=== PATIENT | female | born 1935 | race Caucasian/White ===

== ENCOUNTER 2018-10-03 15:55 | Emergency (ER) | payer MEDICARE, OTHER ==
[~2018-10-03] VITALS: Ht 162.6 cm; Wt 65.9 kg
[2018-10-03] MEDS ORDERED: normal saline 1000ml 1,000 ML IV ONE (16:30)
[2018-10-03 16:56] LABS: EOSINOPHILS # (AUTO) 0.4 X10'3 (0-0.9)
[2018-10-03 16:58] LABS: BASOPHILS % (AUTO) 0.3 % (0-1); EOSINOPHILS % (AUTO) 4.6 % (0-6); HEMATOCRIT 41.8 % (35.0-45.0); HEMOGLOBIN 13.7 g/dl (12.0-16.0); LYMPHOCYTES # (AUTO) 1.7 X10'3 (1.1-4.8); LYMPHOCYTES % (AUTO) 20.9 % (21-51); MEAN CORPUSCULAR HEMOGLOBIN 31.3 PG (27.0-31.0); MEAN CORPUSCULAR HGB CONC 32.8 g/dL (33.0-36.5); MEAN CORPUSCULAR VOLUME 95.4 FL (78-98); MEAN PLATELET VOLUME 7.8 FL (7.4-10.4); MONOCYTES # (AUTO) 0.5 X10'3 (0-0.9); MONOCYTES % (AUTO) 6.2 % (2-12); NEUTROPHILS # (AUTO) 5.7 X10'3 (1.8-7.7); PLATELET COUNT 266 X10'3 (140-440); RED BLOOD COUNT 4.38 X10'6 (4.20-5.60); RED CELL DISTRIBUTION WIDTH 14.7 % (11.5-14.5); WHITE BLOOD COUNT 8.3 X10'3 (4.5-11.0)
[2018-10-03 17:03] LABS: ALANINE AMINOTRANSFERASE 20 U/L (12-78); ALBUMIN 3.4 G/DL (3.4-5.0); ALBUMIN/GLOBULIN RATIO 0.9 (1.1-1.5); ALKALINE PHOSPHATASE 85 IU/L (46-116); ANION GAP 7 (8-16); ASPARTATE AMINO TRANSFERASE 11 U/L (10-37); BILIRUBIN,TOTAL 0.2 MG/DL (0.1-1.0); BLOOD UREA NITROGEN 24 MG/DL (7-18); BUN/CREATININE RATIO 25.3 (6.6-38.0); CALCIUM 9.5 MG/DL (8.5-10.1); CHLORIDE 106 MMOL/L (99-107); CREATININE 0.95 MG/DL (0.40-0.90); GLUCOSE 104 MG/DL (70-104); MAGNESIUM 2.2 MG/DL (1.5-2.4); POTASSIUM 4.7 MMOL/L (3.5-5.1); SODIUM 139 MMOL/L (135-145); TOTAL CARBON DIOXIDE 26.5 MMOL/L (24-32); TOTAL PROTEIN 7.2 G/DL (6.4-8.2); eGFR 56 ML/MIN
[2018-10-03] MEDS ORDERED: ibuprofen tablet 400 MG TABLET PO ONE (17:30)
[2018-10-03 17:52] VITALS: BP 121/55
== END 2018-10-03 17:53 | disposition home or self-care (01) ==
LOC: ER 15:56
DX: S52.691A Other fracture of lower end of right ulna, initial encounter for closed fracture (principal); E86.0 Dehydration; R55 Syncope and collapse; J44.9 Chronic obstructive pulmonary disease, unspecified; F10.99 Alcohol use, unspecified with unspecified alcohol-induced disorder; Z90.49 Acquired absence of other specified parts of digestive tract; Z88.6 Allergy status to analgesic agent; Z88.8 Allergy status to other drugs, medicaments and biological substances; W18.39XA Other fall on same level, initial encounter; Y93.89 Activity, other specified; Y92.89 Other specified places as the place of occurrence of the external cause; Y99.8 Other external cause status; Y90.9 Presence of alcohol in blood, level not specified
CPT/HCPCS: 29125; 36415; 71045; 73090; 80053; 83735; 84484; 85025; 85610; 93005; 99284

== ENCOUNTER 2018-10-11 14:44 | Outpatient (CLI) | payer MEDICARE, OTHER | END 2018-10-11 16:50 | disposition home or self-care (01) | LOC: ORTHO 14:44 | PROVIDERS: ATTEND Orthopaedic Surgery | DX: S52.691D Other fracture of lower end of right ulna, subsequent encounter for closed fracture with routine healing (principal); J44.9 Chronic obstructive pulmonary disease, unspecified; Z87.891 Personal history of nicotine dependence; W19.XXXD Unspecified fall, subsequent encounter | CPT/HCPCS: 29075; 73110; A4590; G0463 ==

== ENCOUNTER 2018-11-08 14:45 | Outpatient (CLI) | payer MEDICARE, OTHER | END 2018-11-08 16:10 | disposition home or self-care (01) | LOC: ORTHO 14:45 | PROVIDERS: ATTEND Orthopaedic Surgery | DX: S52.501D Unspecified fracture of the lower end of right radius, subsequent encounter for closed fracture with routine healing (principal); J44.9 Chronic obstructive pulmonary disease, unspecified; Z87.891 Personal history of nicotine dependence; Z72.89 Other problems related to lifestyle; X58.XXXD Exposure to other specified factors, subsequent encounter | CPT/HCPCS: 73110; G0463 ==

== ENCOUNTER 2019-01-10 14:58 | Outpatient (CLI) | payer MEDICARE, OTHER | END 2019-01-10 16:00 | disposition home or self-care (01) | LOC: ORTHO 14:58 | PROVIDERS: ATTEND Orthopaedic Surgery | DX: S59.001D Unspecified physeal fracture of lower end of ulna, right arm, subsequent encounter for fracture with routine healing (principal); X58.XXXD Exposure to other specified factors, subsequent encounter | CPT/HCPCS: 73110; G0463 ==

== ENCOUNTER 2020-05-24 03:30 | Inpatient (IN) | payer MEDICARE, OTHER ==
[2020-05-24] VITALS (8 sets, daily range): BP systolic 108–168; BP diastolic 49–69
[~2020-05-24] VITALS: Ht 162.6 cm; Wt 68.2 kg
[2020-05-24 04:04] LABS: BASOPHILS # (AUTO) 0.1 X10'3 (0-0.2); BASOPHILS % (AUTO) 0.7 % (0-1); EOSINOPHILS # (AUTO) 0.4 X10'3 (0-0.9); EOSINOPHILS % (AUTO) 5.8 % (0-6); HEMATOCRIT 41.2 % (35.0-45.0); HEMOGLOBIN 13.5 g/dl (12.0-16.0); LYMPHOCYTES # (AUTO) 1.8 X10'3 (1.1-4.8); MEAN CORPUSCULAR HEMOGLOBIN 31.6 PG (27.0-31.0); MEAN CORPUSCULAR HGB CONC 32.7 g/dL (33.0-36.5); MEAN CORPUSCULAR VOLUME 96.4 FL (78-98); MEAN PLATELET VOLUME 7.9 FL (7.4-10.4); MONOCYTES # (AUTO) 0.6 X10'3 (0-0.9); NEUTROPHILS # (AUTO) 4.7 X10'3 (1.8-7.7); NEUTROPHILS % (AUTO) 61.5 % (42-75); PLATELET COUNT 261 X10'3 (140-440); RED BLOOD COUNT 4.27 X10'6 (4.20-5.60); RED CELL DISTRIBUTION WIDTH 13.8 % (11.5-14.5); WHITE BLOOD COUNT 7.7 X10'3 (4.5-11.0)
--- NOTE | 2020-05-24 05:24 | NUR ---
pt awaiting hospitalist.
[2020-05-24 05:30] LABS: ALANINE AMINOTRANSFERASE 23 U/L (12-78); ALBUMIN 3.5 G/DL (3.4-5.0); ALBUMIN/GLOBULIN RATIO 0.9 (1.1-1.5); ALKALINE PHOSPHATASE 94 IU/L (46-116); ANION GAP 12 (8-16); ASPARTATE AMINO TRANSFERASE 16 U/L (10-37); BILIRUBIN,TOTAL 0.3 MG/DL (0.1-1.0); BLOOD UREA NITROGEN 18 MG/DL (7-18); BUN/CREATININE RATIO 18.6 (6.6-38.0); CALCIUM 9.6 MG/DL (8.5-10.1); CHLORIDE 104 MMOL/L (99-107); CREATININE 0.97 MG/DL (0.40-0.90); GLUCOSE 106 MG/DL (70-104); POTASSIUM 4.5 MMOL/L (3.5-5.1); SODIUM 141 MMOL/L (135-145); TOTAL CARBON DIOXIDE 25.3 MMOL/L (24-32); TOTAL PROTEIN 7.2 G/DL (6.4-8.2); eGFR 55 ML/MIN
[2020-05-24] MEDS ORDERED: ALBU8.5H8 INH (05:37)
[2020-05-24] MEDS ORDERED: LOSA25TA96 PO (05:37)
[2020-05-24] MEDS ORDERED: FLUT1DIS INH (05:37)
[2020-05-24] MEDS ORDERED: ondansetron/PF 4mg/2ml inj IV PRN (05:40)
[2020-05-24] MEDS ORDERED: magnesium 2GM in 50ml NS 50 ML IV PRN (05:40)
[2020-05-24] MEDS ORDERED: potassium Cl 40MEQ/1/2NS 520ml 520 ML IV PRN ×2 (05:40)
[2020-05-24] MEDS ORDERED: magnesium 4gm in 100ml NS 100 ML IV PRN (05:40)
[2020-05-24] MEDS ORDERED: mag hydrox/Alum hydrox/simeth 30ml oral suspension PO PRN (05:40)
[2020-05-24] MEDS ORDERED: morphine 2 MG/ML inj. syringe IV PRN (05:40)
[2020-05-24] MEDS ORDERED: potassium Cl 20 mEq SR tablet PO PRN ×2 (05:40)
[2020-05-24] MEDS ORDERED: regadenoson 0.4mg/5ml syringe IV ONE (05:40)
[2020-05-24] MEDS ORDERED: acetaminophen 325mg tablet PO PRN ×2 (05:40)
[2020-05-24] MEDS ORDERED: docusate sod 100mg capsule PO PRN (05:40)
[2020-05-24] MEDS ORDERED: normal saline 1000ml 1,000 ML IV SCH (05:40)
[2020-05-24] MEDS ORDERED: aminophylline 250mg/10ml inj. IV PRN (05:40)
[2020-05-24] MEDS ORDERED: nitroGLYCERIN 0.4mg SUBLingual tab SL PRN (05:40)
[2020-05-24] MEDS ORDERED: metoprolol tartrate 1mg/ml inj IV PRN (05:40)
[2020-05-24] MEDS ORDERED: magnesium Cl slow-release 64mg tablet PO PRN (05:40)
[2020-05-24] MEDS ORDERED: HYDROcodone/acetaminophen 5mg/325mg tablet PO PRN (05:40)
--- NOTE | 2020-05-24 06:00 | NUR ---
admission orders written. dr. solitario at bedside for admission. pts remains at bedside. stable vs. no cp at this time.
[2020-05-24] MEDS ORDERED: albuterol 2.5 MG/3 ML nebule NEB PRN (06:15)
[2020-05-24] MEDS ORDERED: pantoprazole 40mg Tablet.DR PO SCH (07:30)
[2020-05-24] MEDS ORDERED: heparin, porcine 5000 units/ml vial SQ SCH (08:00)
[2020-05-24] MEDS ORDERED: K and/or MAG REPLACEMENT MC SCH (08:00)
[2020-05-24] MEDS ORDERED: amLODIPine 5mg tablet PO SCH (08:00)
[2020-05-24] MEDS ORDERED: LOSA50TA3 PO (10:24)
--- NOTE | 2020-05-24 12:15 | NUR ---
Patient brought from the ED to room 3015p. Received report from RHIANNA Barker. 2 RN skin assessment and MRSA swab completed. VS stable and entered into [facility]. engine monitor 5 placed onto patient.
--- NOTE | 2020-05-24 15:00 | NUR ---
Group page sent. Awaiting response. PAGER ID: [phone] MESSAGE: Who has Alireza Joaquin. 3014a? Came up at 12 from ED; admitted by Magu around 0600.. Stress test results negative. Patient wanting to leave tonight, if possible. Thanks. Lucero. [phone].
--- NOTE | 2020-05-24 16:24 | NUR ---
Awaiting md response. PAGER ID: [phone] MESSAGE: Re: Joaquin Lay. 3014a. Gabby scan and 12hr trops negative. Can I feed the patient? Also, wants to DC and talk to you. thanks. Lucero. [phone].
--- NOTE | 2020-05-24 17:25 | NUR ---
notified. PAGER ID: [phone] MESSAGE: Re: Joaquin Lay. [id number]. No longer in patient discharge screen. Need home medications finalized prior to DC. thanks. Lucero. [phone].
--- NOTE | 2020-05-24 18:08 | NUR ---
Patient stable for discharge per md orders. no perscriptions called in. Education and strict return precautions gone over in detail. IV discontinued and taken out with cannula intact. panel monitor discontinued. Patient placed into wheelchair and wheeled to lobby by cristal [place]. Patient helped into private vehicle driven by significant other of patient.
== END 2020-05-24 18:30 | disposition home or self-care (01) | DRG 313 ==
LOC: ER 03:31 → ED HOLD 05:36 → PCU 3S 13:33
PROVIDERS: ADMIT Internal Medicine; ATTEND Internal Medicine
PROC: 4A02XM4 Measurement of Cardiac Total Activity, External Approach (ICD-10-PCS; principal; 2020-05-24)
PROC: 3E073KZ Introduction of Other Diagnostic Substance into Coronary Artery, Percutaneous Approach (ICD-10-PCS; 2020-05-24)
DX: R07.89 Other chest pain (principal); I10 Essential (primary) hypertension; J43.9 Emphysema, unspecified; M25.50 Pain in unspecified joint; M19.011 Primary osteoarthritis, right shoulder; Z87.891 Personal history of nicotine dependence; Z90.49 Acquired absence of other specified parts of digestive tract; Z88.5 Allergy status to narcotic agent
CPT/HCPCS: 36415; 71045; 78452; 80053; 83880; 84484; 85025; 87081; 93005; 93017; 93306; 93308; 97116; 97161; 97530; 97535; 99285; A9500; G0378; J1644; J2785; J7030

== ENCOUNTER 2023-09-12 19:50 | Inpatient (IN) | payer MEDICARE, OTHER ==
[~2023-09-12] VITALS: Ht 162.6 cm; Wt 54.5 kg
[~2023-09-12 19:50] MED LIST: ADV50100 INH; ALBU8.5H17 INH; LOSA1TAB36 PO
[2023-09-12 20:18] LABS: EOSINOPHILS # (AUTO) 0.1 X10'3 (0-0.9); RED CELL DISTRIBUTION WIDTH 13.7 % (11.5-14.5); WHITE BLOOD COUNT 15.7 X10'3 (4.5-11.0)
[2023-09-12 20:20] LABS: BASOPHILS % (AUTO) 0.1 % (0-1); EOSINOPHILS % (AUTO) 0.5 % (0-6); HEMOGLOBIN 12.8 g/dl (12.0-16.0); LYMPHOCYTES # (AUTO) 0.7 X10'3 (1.1-4.8); LYMPHOCYTES % (AUTO) 4.7 % (21-51); MEAN CORPUSCULAR HEMOGLOBIN 32.1 PG (27.0-31.0); MEAN CORPUSCULAR HGB CONC 33.6 g/dL (33.0-36.5); MEAN CORPUSCULAR VOLUME 95.6 FL (78-98); MEAN PLATELET VOLUME 7.7 FL (7.4-10.4); MONOCYTES # (AUTO) 0.8 X10'3 (0-0.9); MONOCYTES % (AUTO) 5.4 % (2-12); NEUTROPHILS % (AUTO) 89.3 % (42-75); PLATELET COUNT 314 X10'3 (140-440); RED BLOOD COUNT 3.97 X10'6 (4.20-5.60)
[2023-09-12 20:31] LABS: ALANINE AMINOTRANSFERASE 18 U/L (12-78); ALBUMIN 3.2 G/DL (3.4-5.0); ALBUMIN/GLOBULIN RATIO 0.9 (1.1-1.5); ALKALINE PHOSPHATASE 101 IU/L (46-116); ANION GAP 7 (8-16); ASPARTATE AMINO TRANSFERASE 16 U/L (10-37); BILIRUBIN,TOTAL 0.5 MG/DL (0.1-1.0); BLOOD UREA NITROGEN 28 MG/DL (7-18); BUN/CREATININE RATIO 18.9 (10.0-20.0); CALCIUM 9.5 MG/DL (8.5-10.1); CHLORIDE 98 MMOL/L (99-107); CREATININE 1.48 MG/DL (0.40-0.90); GLUCOSE 133 MG/DL (70-104); POTASSIUM 4.1 MMOL/L (3.5-5.1); SODIUM 133 MMOL/L (135-145); TOTAL CARBON DIOXIDE 28.3 MMOL/L (24-32); TOTAL PROTEIN 6.8 G/DL (6.4-8.2); eCRCL 23 ML/MIN; eGFR 33 ML/MIN
[2023-09-12] MEDS: normal saline 1000ml 1,000 ML IV ONE (21:45)
[2023-09-12 23:15] LABS: BILIRUBIN,URINE NEGATIVE (Neg); CLARITY,URINE CLOUDY (Clear); COLOR,URINE YELLOW (Yellow); GLUCOSE, URINE NEGATIVE (Neg); KETONES,URINE TRACE mg/dl (Neg); LEUKOCYTE ESTERASE ,URINE SMALL (Neg); NITRITES, URINE NEGATIVE (Neg); OCCULT BLOOD,URINE LARGE (Neg); PROTEIN,URINE >=300 mg/dl (Neg); UROBILINOGEN,URINE 0.2 E.U/dL (0.2-1.0)
[2023-09-12 23:19] LABS: UA COLLECTION TYPE STRAIGHT CATH
[2023-09-12 23:33] LABS: WBC,URINE TNTC /HPF (0-4)
[2023-09-12 23:34] LABS: AMORPHOUS URATES 1+; BACTERIA,URINE 2+ /HPF (Neg); SQUAMOUS EPITHELIAL CELL,UR FEW /LPF (FEW); TRANSITIONAL EPI CELLS,URINE FEW /HPF
[2023-09-13] MEDS: CefTRIAXone/D5W-Rocephin 1gm 50 ML IV ONE
[2023-09-13] MEDS ORDERED: acetaminophen 325mg tablet PO PRN (01:05)
[2023-09-13] MEDS ORDERED: magnesium sulf-water 2g/50mL 50 ML IV PRN (01:05)
[2023-09-13] MEDS ORDERED: ondansetron/PF 4mg/2ml inj IV PRN (01:05)
[2023-09-13] MEDS ORDERED: magnesium sulf-water 4G/100mL 100 ML IV PRN (01:05)
[2023-09-13] MEDS ORDERED: mag hydrox/Alum hydrox/simeth 30ml oral suspension PO PRN (01:05)
[2023-09-13] MEDS ORDERED: potassium Cl 20 mEq SR tablet PO PRN ×2 (01:05)
[2023-09-13] MEDS ORDERED: magnesium Cl slow-release 64mg tablet PO PRN (01:05)
[2023-09-13] MEDS ORDERED: potassium Cl 40MEQ/1/2NS 520ml 520 ML IV PRN (01:05)
[2023-09-13 02:13] LABS: HEMOGLOBIN A1C 5.9 % (4.5-6.2)
[2023-09-13] MEDS: K and/or MAG REPLACEMENT MC SCH (07:53)
[2023-09-13] MEDS: heparin, porcine 5000 units/ml vial SQ SCH (08:01)
[2023-09-13] MEDS: docusate sod 100mg capsule PO SCH (08:01)
[2023-09-13] MEDS: normal saline 1000ml 1,000 ML IV SCH (09:58)
[2023-09-13] MEDS ORDERED: QUET25TA36 PO (14:19)
[2023-09-13] MEDS ORDERED: TRAM50TA2 PO (14:19)
[2023-09-13 18:00] VITALS: BP 141/55; PULSE 72; RESP 16; TEMP 96.8; O2SAT 92
[2023-09-13 20:00] VITALS: BP_SYST 160; BP_SYST 166; BP_DIAS 72; BP_DIAS 73; PULSE 63; PULSE 65; RESP 17; O2SAT 93
[2023-09-13] MEDS: CefTRIAXone/D5W-Rocephin 1gm 50 ML IV SCH (20:23)
[2023-09-13 22:00] VITALS: BP 166/73; PULSE 63; RESP 15; TEMP 97.3; O2SAT 93
[2023-09-14] VITALS (9 sets, daily range): BP systolic 109–155; BP diastolic 50–71; PULSE 57–79; RESP 15–20; TEMP 96.4–98.4; O2SAT 93–99
[2023-09-14] MEDS ORDERED: traMADol 50MG tablet PO PRN ×2 (08:35→12:15)
[2023-09-14] MEDS ORDERED: albuterol 2.5 MG/3 ML nebule NEB PRN (08:35)
[2023-09-14] MEDS: losartan 50mg tablet PO SCH (08:35)
[2023-09-14] MEDS: QUEtiapine 25mg tablet PO SCH (09:53)
[2023-09-14 12:58] LABS: BASOPHILS % (AUTO) 0.3 % (0-1); EOSINOPHILS # (AUTO) 0.1 X10'3 (0-0.9); EOSINOPHILS % (AUTO) 0.9 % (0-6); HEMATOCRIT 39.6 % (35.0-45.0); HEMOGLOBIN 13.1 g/dl (12.0-16.0); LYMPHOCYTES # (AUTO) 0.9 X10'3 (1.1-4.8); LYMPHOCYTES % (AUTO) 10.6 % (21-51); MEAN CORPUSCULAR HGB CONC 33.2 g/dL (33.0-36.5); MEAN CORPUSCULAR VOLUME 96.4 FL (78-98); MONOCYTES # (AUTO) 0.5 X10'3 (0-0.9); MONOCYTES % (AUTO) 5.8 % (2-12); NEUTROPHILS # (AUTO) 6.9 X10'3 (1.8-7.7); NEUTROPHILS % (AUTO) 82.4 % (42-75); PLATELET COUNT 307 X10'3 (140-440); RED CELL DISTRIBUTION WIDTH 13.6 % (11.5-14.5); WHITE BLOOD COUNT 8.4 X10'3 (4.5-11.0)
[2023-09-14 13:02] LABS: ALANINE AMINOTRANSFERASE 24 U/L (12-78); ALBUMIN 2.8 G/DL (3.4-5.0); ALBUMIN/GLOBULIN RATIO 0.7 (1.1-1.5); ALKALINE PHOSPHATASE 86 IU/L (46-116); ANION GAP 7 (8-16); ASPARTATE AMINO TRANSFERASE 30 U/L (10-37); BILIRUBIN,TOTAL 0.4 MG/DL (0.1-1.0); BLOOD UREA NITROGEN 18 MG/DL (7-18); CALCIUM 9.2 MG/DL (8.5-10.1); CHLORIDE 103 MMOL/L (99-107); GLUCOSE 113 MG/DL (70-104); POTASSIUM 3.9 MMOL/L (3.5-5.1); SODIUM 137 MMOL/L (135-145); TOTAL CARBON DIOXIDE 27.1 MMOL/L (24-32); TOTAL PROTEIN 6.6 G/DL (6.4-8.2); eCRCL 34 ML/MIN; eGFR 52 ML/MIN
[2023-09-14 13:04] LABS: CHOLESTEROL 181 MG/DL (0-200); HDL CHOLESTEROL 89 MG/DL (35-60); LDL CHOLESTEROL 70 MG/DL (50-100); MAGNESIUM 1.7 MG/DL (1.5-2.4); PHOSPHORUS 3.7 MG/DL (2.3-4.5); TRIGLYCERIDES 77 MG/DL (20-135)
[2023-09-14] MEDS: albuterol 2.5 MG/3 ML nebule NEB SCH (20:42)
[2023-09-14] MEDS: budesonide 0.5mg/2ml UD nebule IH SCH (20:43)
[2023-09-15] VITALS (12 sets, daily range): BP systolic 115–153; BP diastolic 41–69; PULSE 51–79; RESP 14–18; TEMP 97–97.9; O2SAT 93–98
[2023-09-15 07:22] LABS: BASOPHILS % (AUTO) 0.4 % (0-1); EOSINOPHILS # (AUTO) 0.2 X10'3 (0-0.9); EOSINOPHILS % (AUTO) 2.3 % (0-6); HEMATOCRIT 35.1 % (35.0-45.0); HEMOGLOBIN 11.6 g/dl (12.0-16.0); LYMPHOCYTES # (AUTO) 1.2 X10'3 (1.1-4.8); LYMPHOCYTES % (AUTO) 13.9 % (21-51); MEAN CORPUSCULAR HEMOGLOBIN 31.9 PG (27.0-31.0); MEAN CORPUSCULAR HGB CONC 32.9 g/dL (33.0-36.5); MONOCYTES # (AUTO) 0.6 X10'3 (0-0.9); MONOCYTES % (AUTO) 7.3 % (2-12); NEUTROPHILS # (AUTO) 6.3 X10'3 (1.8-7.7); NEUTROPHILS % (AUTO) 76.1 % (42-75); PLATELET COUNT 292 X10'3 (140-440); RED BLOOD COUNT 3.62 X10'6 (4.20-5.60); RED CELL DISTRIBUTION WIDTH 13.8 % (11.5-14.5); WHITE BLOOD COUNT 8.3 X10'3 (4.5-11.0)
[2023-09-15 08:02] LABS: ALANINE AMINOTRANSFERASE 19 U/L (12-78); ALBUMIN 2.5 G/DL (3.4-5.0); ALBUMIN/GLOBULIN RATIO 0.7 (1.1-1.5); ALKALINE PHOSPHATASE 72 IU/L (46-116); ANION GAP 11 (8-16); ASPARTATE AMINO TRANSFERASE 19 U/L (10-37); BILIRUBIN,TOTAL 0.3 MG/DL (0.1-1.0); BLOOD UREA NITROGEN 24 MG/DL (7-18); BUN/CREATININE RATIO 24.7 (10.0-20.0); CALCIUM 8.8 MG/DL (8.5-10.1); CHLORIDE 104 MMOL/L (99-107); CREATININE 0.97 MG/DL (0.40-0.90); GLUCOSE 99 MG/DL (70-104); MAGNESIUM 1.9 MG/DL (1.5-2.4); PHOSPHORUS 3.6 MG/DL (2.3-4.5); POTASSIUM 3.6 MMOL/L (3.5-5.1); SODIUM 139 MMOL/L (135-145); TOTAL CARBON DIOXIDE 24.4 MMOL/L (24-32); TOTAL PROTEIN 6.1 G/DL (6.4-8.2); eCRCL 35 ML/MIN; eGFR 54 ML/MIN
[2023-09-16] VITALS (11 sets, daily range): BP systolic 114–154; BP diastolic 44–76; PULSE 55–79; RESP 16–18; TEMP 97.8–98.2; O2SAT 93–98
[2023-09-16 07:12] LABS: BASOPHILS % (AUTO) 0.2 % (0-1); EOSINOPHILS # (AUTO) 0.3 X10'3 (0-0.9); EOSINOPHILS % (AUTO) 3.8 % (0-6); HEMATOCRIT 36.7 % (35.0-45.0); HEMOGLOBIN 12.1 g/dl (12.0-16.0); LYMPHOCYTES # (AUTO) 1.2 X10'3 (1.1-4.8); LYMPHOCYTES % (AUTO) 18.2 % (21-51); MEAN CORPUSCULAR HEMOGLOBIN 32.5 PG (27.0-31.0); MEAN CORPUSCULAR HGB CONC 33.1 g/dL (33.0-36.5); MEAN CORPUSCULAR VOLUME 98.1 FL (78-98); MEAN PLATELET VOLUME 7.6 FL (7.4-10.4); MONOCYTES # (AUTO) 0.5 X10'3 (0-0.9); MONOCYTES % (AUTO) 7.7 % (2-12); NEUTROPHILS # (AUTO) 4.8 X10'3 (1.8-7.7); NEUTROPHILS % (AUTO) 70.1 % (42-75); PLATELET COUNT 291 X10'3 (140-440); RED BLOOD COUNT 3.74 X10'6 (4.20-5.60); WHITE BLOOD COUNT 6.8 X10'3 (4.5-11.0)
[2023-09-16 07:42] LABS: ALANINE AMINOTRANSFERASE 19 U/L (12-78); ALBUMIN 2.5 G/DL (3.4-5.0); ALBUMIN/GLOBULIN RATIO 0.7 (1.1-1.5); ALKALINE PHOSPHATASE 68 IU/L (46-116); ANION GAP 10 (8-16); ASPARTATE AMINO TRANSFERASE 18 U/L (10-37); BILIRUBIN,TOTAL 0.3 MG/DL (0.1-1.0); BLOOD UREA NITROGEN 17 MG/DL (7-18); BUN/CREATININE RATIO 20.2 (10.0-20.0); CALCIUM 8.7 MG/DL (8.5-10.1); CHLORIDE 106 MMOL/L (99-107); CREATININE 0.84 MG/DL (0.40-0.90); GLUCOSE 97 MG/DL (70-104); PHOSPHORUS 3.4 MG/DL (2.3-4.5); POTASSIUM 3.8 MMOL/L (3.5-5.1); SODIUM 138 MMOL/L (135-145); TOTAL CARBON DIOXIDE 22.3 MMOL/L (24-32); TOTAL PROTEIN 5.9 G/DL (6.4-8.2); eCRCL 41 ML/MIN; eGFR 64 ML/MIN
[2023-09-16] MEDS: bisacodyl 10mg suppository rectal RC STA (13:00)
[2023-09-17 05:46] LABS: ALANINE AMINOTRANSFERASE 21 U/L (12-78); ALBUMIN 2.4 G/DL (3.4-5.0); ALBUMIN/GLOBULIN RATIO 0.8 (1.1-1.5); ALKALINE PHOSPHATASE 63 IU/L (46-116); ANION GAP 7 (8-16); ASPARTATE AMINO TRANSFERASE 20 U/L (10-37); BILIRUBIN,TOTAL 0.2 MG/DL (0.1-1.0); BLOOD UREA NITROGEN 16 MG/DL (7-18); BUN/CREATININE RATIO 16.5 (10.0-20.0); CALCIUM 8.6 MG/DL (8.5-10.1); CHLORIDE 109 MMOL/L (99-107); CREATININE 0.97 MG/DL (0.40-0.90); GLUCOSE 96 MG/DL (70-104); MAGNESIUM 1.9 MG/DL (1.5-2.4); PHOSPHORUS 3.6 MG/DL (2.3-4.5); POTASSIUM 3.9 MMOL/L (3.5-5.1); SODIUM 140 MMOL/L (135-145); TOTAL CARBON DIOXIDE 23.8 MMOL/L (24-32); TOTAL PROTEIN 5.6 G/DL (6.4-8.2); eCRCL 35 ML/MIN; eGFR 54 ML/MIN
[2023-09-17 06:00] VITALS: BP 125/50; PULSE 58; RESP 17; TEMP 98.1; O2SAT 99
[2023-09-17 06:13] LABS: BASOPHILS # (AUTO) 0.1 X10'3 (0-0.2); BASOPHILS % (AUTO) 0.8 % (0-1); EOSINOPHILS # (AUTO) 0.2 X10'3 (0-0.9); HEMATOCRIT 35.2 % (35.0-45.0); HEMOGLOBIN 11.4 g/dl (12.0-16.0); LYMPHOCYTES # (AUTO) 1.4 X10'3 (1.1-4.8); LYMPHOCYTES % (AUTO) 20.1 % (21-51); MEAN CORPUSCULAR HEMOGLOBIN 31.6 PG (27.0-31.0); MEAN CORPUSCULAR HGB CONC 32.2 g/dL (33.0-36.5); MEAN PLATELET VOLUME 8.3 FL (7.4-10.4); MONOCYTES # (AUTO) 0.6 X10'3 (0-0.9); MONOCYTES % (AUTO) 8.6 % (2-12); NEUTROPHILS # (AUTO) 4.8 X10'3 (1.8-7.7); NEUTROPHILS % (AUTO) 67.5 % (42-75); PLATELET COUNT 268 X10'3 (140-440); RED BLOOD COUNT 3.59 X10'6 (4.20-5.60); RED CELL DISTRIBUTION WIDTH 14.1 % (11.5-14.5); WHITE BLOOD COUNT 7.2 X10'3 (4.5-11.0)
[2023-09-17 08:00] VITALS: BP_SYST 145; BP_SYST 148; BP_SYST 152; BP_DIAS 58; BP_DIAS 60; BP_DIAS 61; PULSE 56; PULSE 59; PULSE 60
[2023-09-17 09:13] VITALS: PULSE 82; RESP 20; O2SAT 95
[2023-09-17 10:00] VITALS: BP 118/45; PULSE 62; RESP 16; TEMP 97.8; O2SAT 98
== END 2023-09-17 15:09 | DRG 91 ==
LOC: ER 19:50 → ED HOLD 09-13 01:15 → ORTHO 4S 09-13 17:43
PROVIDERS: ADMIT Surgery Surgical Critical Care; ATTEND Internal Medicine
DX: G92.8 Other toxic encephalopathy (principal); G93.41 Metabolic encephalopathy; N17.0 Acute kidney failure with tubular necrosis; N39.0 Urinary tract infection, site not specified; E87.1 Hypo-osmolality and hyponatremia; J43.9 Emphysema, unspecified; F10.90 Alcohol use, unspecified, uncomplicated; I12.9 Hypertensive chronic kidney disease with stage 1 through stage 4 chronic kidney disease, or unspecified chronic kidney disease; N18.30 Chronic kidney disease, stage 3 unspecified; E86.0 Dehydration; F03.90 Unspecified dementia, unspecified severity, without behavioral disturbance, psychotic disturbance, mood disturbance, and anxiety; M79.605 Pain in left leg; G89.29 Other chronic pain; Z88.6 Allergy status to analgesic agent; Z79.899 Other long term (current) drug therapy; Z90.49 Acquired absence of other specified parts of digestive tract
CPT/HCPCS: 36415; 71045; 80053; 80061; 81001; 83036; 83605; 83735; 83930; 84100; 84132; 84145; 84484; 85025; 85651; 87040; 87081; 87088; 93005; 94640; 94760; 97110; 97116; 97162; 97530; 99285; A4353; G0378; J0696; J1644; J7030